=== PATIENT | male | born 1955 | race Caucasian/White ===

== ENCOUNTER 2017-02-14 08:29 | Inpatient (IN) | payer OTHER ==
[2017-01-30 11:31] VITALS: BMI 33.0
--- NOTE | 2017-01-30 12:04 | PAT Medication Instructions ---
Service Date Jan 30, 2017. Current Home Medication List Albuterol Hfa (Ventolin Hfa), 2 PUFFS INH Q4H PRN for RN Alprazolam (Xanax), 1 MG PO TID PRN for RN Amlodipine (Norvasc), 10 MG PO QAM Aspirin (Aspirin Ec), 81 MG PO QAM Baclofen (Lioresal), 20 MG PO TID PRN for PRN Bupropion (Wellbutrin Sr), 150 MG PO BID Citalopram Hydrobromide (Celexa), 20 MG PO QAM Insulin Glargine (Lantus), 20 UNITS SC HS Insulin Human Regular (Humulin R), 20 UNITS INJ TIDM Irbesartan (Avapro), 150 MG PO QAM Metformin Hcl (Glucophage), 1,000 MG PO BID Omeprazole (Prilosec), 20 MG PO QAM Zolpidem Tartrate (Zolpidem Tartrate), 1 TAB PO HS PRN for RN [Allergy Otc], 1 TAB PO HS Medication Instructions For Your Scheduled Surgery - Hold the following medications 48 hours prior to surgery: Metformin Hcl (Glucophage), 1,000 MG PO BID - Hold the following medications the morning of surgery: Irbesartan (Avapro), 150 MG PO QAM Insulin Human Regular (Humulin R), 20 UNITS INJ TIDM Baclofen (Lioresal), 20 MG PO TID PRN for PRN - Take the following medications the morning of surgery with a sip of water: Omeprazole (Prilosec), 20 MG PO QAM Citalopram Hydrobromide (Celexa), 20 MG PO QAM Bupropion (Wellbutrin Sr), 150 MG PO BID Amlodipine (Norvasc), 10 MG PO QAM Alprazolam (Xanax), 1 MG PO TID PRN for RN (if needed) Albuterol Hfa (Ventolin Hfa), 2 PUFFS INH Q4H PRN for RN (if needed; bring with you to hospital morning of surgery) Aspirin (Aspirin Ec), 81 MG PO QAM - Take the following medications as scheduled the night before surgery: [Allergy Otc], 1 TAB PO HS Zolpidem Tartrate (Zolpidem Tartrate), 1 TAB PO HS PRN for RN (if needed) Insulin Glargine (Lantus), 20 UNITS SC HS Insulin Human Regular (Humulin R), 20 UNITS INJ TIDM (per sliding scale) Bupropion (Wellbutrin Sr), 150 MG PO BID Baclofen (Lioresal), 20 MG PO TID PRN for PRN (if needed) Alprazolam (Xanax), 1 MG PO TID PRN for RN (if needed) Albuterol Hfa (Ventolin Hfa), 2 PUFFS INH Q4H PRN for RN (if needed) If you have any questions please call us at [phone] or [phone] or [phone]
[2017-01-30 12:38] LABS: BASO % 0.6 %; BASO ABS # 0.06 K/uL (0-0.2); COMPLETE YES; EOS % 3.8 %; HEMATOCRIT 36.4 % (42-52); IG% 0.6 %; LYMPH % 21.3 %; LYMPH ABS # 1.99 K/uL (1.2-3.4); MEAN CELL VOLUME 86.1 fL (80-100); MEAN CORPUSCULAR HEMOGLOBIN 28.1 pg (25-34); MEAN CORPUSCULAR HGB CONC 32.7 g/dl (32-36); MEAN PLATELET VOLUME 9.3 fL (7.4-10.4); MONO % 6.1 %; NEUT % 67.6 %; PLATELET COUNT 327 K/uL (130-400); RED BLOOD COUNT 4.23 M/uL (4.7-6.1); WHITE BLOOD COUNT 9.33 K/uL (4.8-10.8)
[2017-01-30 12:39] LABS: URINE APPEARANCE CLEAR (CLEAR); URINE BILIRUBIN NEG (NEG); URINE COLOR YELLOW; URINE NITRITE NEG (NEG); URINE SPECIFIC GRAVITY 1.026 (1.000-1.030); UROBILINOGEN NEG (NEG); ZZUR CULT IF INDIC CLEAN CATCH NO
--- NOTE | 2017-01-30 12:42 | DIAGNOSTIC IMAGING REPORT ---
CHEST PREADMISSION(PA/LAT) CLINICAL HISTORY: Preoperative chest COMPARISON STUDY: No previous studies for comparison. FINDINGS: The cardiac and mediastinal contours are normal. There is no evidence of focal pulmonary consolidation. There is no evidence of failure. No pleural effusions are visualized.[ IMPRESSION: No active disease in the chest. Electronically signed by: Lito Cain M.D. 01/30/2017 12:40 PM Dictated Date/Time: 01/30/2017 12:39 PM
[2017-01-30 12:43] LABS: MANUAL MICROSCOPIC REQUIRED? NO; REVIEW REQ? NO
[2017-01-30 12:48] LABS: BUN/CREATININE RATIO 8.1 (10-20); CALCIUM 9.7 mg/dl (8.5-10.1); CREATININE 1.5 mg/dl (0.60-1.40)
[2017-02-14] VITALS (7 sets, daily range): BP systolic 122–169; BP diastolic 79–95; PULSE 72–95; TEMP 36.4–37.4; O2SAT 92–99
[~2017-02-14] VITALS: Ht 180.3 cm; Wt 109.5 kg
[~2017-02-14 08:29] MED LIST: ALLERGY OTC PO; ALPR1TAB3 PO; AMLO-114 PO; ASPI81TA28 PO; ATROPINE SULFATE 0.1 MG/ML 5ML SYR IV PRN; BACL10TA PO; BUPR-79 PO; CEFAZOLIN 2000 MG/60 ML D5W IV SCH; CITA20TA9 PO; EpHEDrine SULFATE INJ 50 MG/ML AMP IV PRN; FENTANYL CITRATE INJ 50 MCG/1 ML 2 ML VIAL IV PRN; HYDROmorphone INJ 1 MG/ML SYR IV PRN; INSDGI SC; INSPMPRGR INJ; IRBE-37 PO; LACTATED RINGER'S 1000ML 1,000 ML IV SCH; METF-384 PO; ONDANSETRON INJ 2 MG/ML 2 ML VIAL IV PRN; PRLSR20 PO; VNTHFA/IN INH; ZOLP10TA6 PO
[2017-02-14] MEDS ORDERED: MIDAZOLAM HCL 1 MG/ML 2ML VIAL ONE (10:21)
[2017-02-14] MEDS ORDERED: FENTANYL CITRATE INJ 50 MCG/1 ML 2 ML VIAL ONE ×4 (10:21→13:38)
--- NOTE | 2017-02-14 10:44 | History & Physical Bridge Note ---
H&P Re-Evaluation Bridge Note: I have examined the patient, reviewed the History & Physical and in the interval since the performance of the History & Physical I have noted the following changes of clinical significance: No changes noted
--- NOTE | 2017-02-14 10:45 | History and Physical ---
History & Physical Date Feb 14, 2017. Chief Complaint Back and leg pain History of Present Illness The patient is a 61 year old male with complaints of persistent back and leg pain Additional History Hepatic Disease: No Endocrine Disorder: No Kidney Disease: No Hypertension: No Heart Disease: No Bleeding Tendencies: No Infectious Diseases: No Allergies Coded Allergies: Celecoxib (Verified Allergy, Unknown, DIZZINESS, 01/30/17) Simvastatin (Verified Allergy, Unknown, PRURITIS, 01/30/17) Home Medications Scheduled Aspirin (Aspirin Ec), 81 MG PO QAM Bupropion (Wellbutrin Sr), 150 MG PO BID Citalopram Hydrobromide (Celexa), 20 MG PO QAM Insulin Glargine (Lantus), 20 UNITS SC HS Insulin Human Regular (Humulin R), 20 UNITS INJ TIDM Irbesartan (Avapro), 150 MG PO QAM Metformin Hcl (Glucophage), 1,000 MG PO BID Omeprazole (Prilosec), 20 MG PO QAM [Allergy Otc], 1 TAB PO HS Scheduled PRN Albuterol Hfa (Ventolin Hfa), 2 PUFFS INH Q4H PRN for RN Alprazolam (Xanax), 1 MG PO TID PRN for RN Baclofen (Lioresal), 20 MG PO TID PRN for PRN Zolpidem Tartrate (Zolpidem Tartrate), 1 TAB PO HS PRN for RN Physical Examination Skin: warm/dry, no rash Eyes: normal inspection, EOMI, sclerae normal ENT: normal ENT inspection, pharynx normal Head: normocephalic, atraumatic Neck: supple, no adenopathy, trachea midline Respiratory/Chest: lungs clear, normal breath sounds, no respiratory distress Cardiovascular: regular rate, rhythm, no edema, no murmur Abdomen / GI: normal bowel sounds, non tender Back: normal inspection Extremities: normal inspection, normal range of motion Neurologic/Psych: no motor/sensory deficits, alert, normal reflexes, oriented x 3 Diagnosis Lumbar spinal stenosis Plan of Treatment Lumbar decompression and fusion L5-S1 possible L4 5
[2017-02-14] MEDS ORDERED: BUPIVACAINE/EPINEPHRINE 0.5% MPF 1:200,000 10 ML VIAL ONE (10:58)
[2017-02-14] MEDS ORDERED: BACITRACIN 50000 UNIT VIAL ONE (10:58)
[2017-02-14] MEDS ORDERED: HYDROmorphone INJ 2 MG/ML SYR/VIAL ONE ×2 (11:36→13:06)
[2017-02-14] MEDS ORDERED: DEXAMETHASONE SOD INJ 4 MG/ML VIAL ONE (12:02)
[2017-02-14] MEDS ORDERED: ROCURONIUM BROMIDE 10 MG/ML 5 ML VIAL ONE (12:02)
[2017-02-14] MEDS ORDERED: PROPOFOL IV EMULSION 10 MG/ML 20 ML VIAL IV ONE (12:02)
[2017-02-14] MEDS ORDERED: EpHEDrine SULFATE 50MG/5ML SYR ONE ×2 (12:02→13:08)
[2017-02-14] MEDS ORDERED: LIDOCAINE HCL 2% 2 ML VIAL (20MG/ML) ONE (12:02)
[2017-02-14] MEDS ORDERED: PHENYLEPHRINE 100MCG/ML 5ML SYR ONE ×2 (12:02→13:08)
[2017-02-14] MEDS ORDERED: FLOSEAL HEMOSTATIC MATRIX 10ML TOP ONE (12:53)
[2017-02-14] MEDS ORDERED: NEOSTIGMINE METHYLSULFATE 1 MG/ML 10ML VIAL ONE (13:08)
[2017-02-14] MEDS ORDERED: GLYCOPYRROLATE INJ 0.2 MG/ML VIAL ONE (13:08)
[2017-02-14] MEDS ORDERED: ONDANSETRON INJ 2 MG/ML 2 ML VIAL ONE (13:08)
--- NOTE | 2017-02-14 13:11 | DIAGNOSTIC IMAGING REPORT ---
INTRAOPERATIVE RADIOGRAPHS CLINICAL HISTORY: L4 - S1 spinal fusion. Fluoroscopy time: 23 seconds. FINDINGS: 2 spot fluoroscopic views of the lumbar spine are presented. There is been discectomy at L5-S1 with laminectomy and posterior fusion from L4 -S1. Interpedicular screws are present at all levels. The orthopedic hardware appears intact. IMPRESSION: Intraoperative images from L4-S1 spinal fusion as above. Electronically signed by: Dick Zurita M.D. 02/14/2017 1:10 PM Dictated Date/Time: 02/14/2017 1:04 PM
[2017-02-14] MEDS ORDERED: SODIUM CHLORIDE 0.9% 1000ML 1,000 ML IV SCH (13:14)
[2017-02-14] MEDS ORDERED: ONDANSETRON INJ 2 MG/ML 2 ML VIAL IV PRN (13:15)
[2017-02-14] MEDS ORDERED: MAGNESIUM HYDROXIDE SUSP 30 ML UDC PO PRN (13:15)
[2017-02-14] MEDS ORDERED: ZOLPIDEM TARTRATE 10 MG TAB PO PRN (13:15)
[2017-02-14] MEDS ORDERED: LORAZEPAM 0.5 MG TAB PO PRN (13:15)
[2017-02-14] MEDS ORDERED: BISACODYL 10 MG SUPP PR PRN (13:15)
[2017-02-14] MEDS ORDERED: PROMETHAZINE HCL INJ 12.5 MG in SODIUM CHLORIDE 0.9% 50ML 50 ML IV PRN (13:15)
[2017-02-14] MEDS ORDERED: FAMOTIDINE 20 MG TAB PO PRN (13:15)
[2017-02-14] MEDS ORDERED: NALOXONE HCL 0.4 MG/1 ML VIAL/CARP IV PRN ×2 (13:15)
[2017-02-14] MEDS ORDERED: METOCLOPRAMIDE HCL INJ 5 MG/ML 2 ML VIAL IV PRN (13:15)
[2017-02-14] MEDS ORDERED: LORAZEPAM INJ 0.5 MG in SYRINGE 0 ML IV PRN (13:15)
[2017-02-14] MEDS ORDERED: hydrOXYzine HCL 25 MG TAB PO PRN (13:15)
[2017-02-14] MEDS ORDERED: ALUMINUM/MAGNESIUM SUSP 30 ML UDC PO PRN (13:15)
[2017-02-14] MEDS ORDERED: ALPRAZOLAM 0.5 MG TAB PO PRN (13:15)
[2017-02-14] MEDS ORDERED: BACLOFEN 10 MG TAB PO PRN (13:15)
[2017-02-14] MEDS ORDERED: ALBUTEROL HFA 8 GM INHALER INH PRN (13:15)
[2017-02-14] MEDS ORDERED: SOD PHOSPHATE/SOD BIPHOSPHATE ENEMA 132 ML BTL PR PRN (13:15)
[2017-02-14] MEDS ORDERED: DO NOT ADMINISTER FLU VACCINE PRN ×3 (13:15)
[2017-02-14] MEDS ORDERED: ACETAMINOPHEN IV 100 ML IV PRN (13:15)
[2017-02-14] MEDS ORDERED: DO NOT ADMINISTER PNEUMOCOCCAL VACCINE PRN ×2 (13:15)
--- NOTE | 2017-02-14 13:23 | [facility] Operative Report ---
Operative Report Operative Date Feb 14, 2017. Pre-Operative Diagnosis Lumbar Spinal Stenosis Post-Operative Diagnosis Lumbar Spinal Stenosis Procedure(s) Performed #1 lumbar decompression L4 5 L5-S1. 2 posterior spinal fusion L4 5 L5-S1. #3 posterior segmental instrumentation L4 5 L5-S1. #4 interbody fusion L5-S1. #5 placement peek cage 10 x 26 mm at L5-S1. #6 placement locally harvested morcellized autograft posterior gutters. #7 placement infuse collagen sponge been by mask graft and posterior gutters DBM in the interbody space. Surgeon Blow Pit Operator Surgeon(s) None Estimated Blood Loss 225ML Findings Spinal stenosis Specimens None per surgeon Description of Procedure Patient was met with preoperatively case discussed all questions are dressed. After informed consent patient was taken back to the operative suite and after undergoing intubation placed in a prone position the Currie table top Som frame. All bony promises well-padded eyes inspected to ensure there is no external pressure placed upon them. This point, spine is prepped draped in the normal sterile fashion. Dissection with the assistance of Bovie cautery was performed onto an exposing the lamina and transverse processes of L4 5 and the sacral alar bilaterally. From a caudal to cephalad fashion laminectomy of L5 and L4 was performed addressing significant lateral recess and foraminal disease. Pedicle screws were then placed in L4 L5 S1 levels bilaterally with the assistance of fluoroscopy in the purposes chau placed. Through a transforaminal approach on the left complete discectomy of L5-S1 was performed and plate could subcortical bleeding bone and a 10 x 26 mm peek cage filled with DBM tapped in position. The rods were then locked and final position bilaterally. Transverse processes of L4-L5 and sacral alar burred to subcortical bleeding bone. Infuse collagen sponge mask graft locally harvested morcellized autograft was placed and posterior gutters. 15 round ARNOL drain inserted. Incision then closed with 1 Vicryl in the fascia 2-0 Vicryl subcutaneous C 4 Monocryl for final skin closure. Steri-Strips sterile dressing placed. Patient we can take PACU stable condition. I attest to the content of the Intraoperative Record and any orders documented therein. Any exceptions are noted below.
[2017-02-14] MEDS ORDERED: HYDROmorphone HCL 0.5MG/ML 50 ML CASSETTE ONE (13:29)
[2017-02-14] MEDS ORDERED: PHARMACY GLYCEMIC MGMT CONSULT PRN (13:33)
--- NOTE | 2017-02-14 14:21 | Anesthesiology Progress Note ---
Anesthesia Post Op Note Date & Time Feb 14, 2017 at 14:13 Vital Signs Pain Intensity: 6 Vital Signs Past 12 Hours Date Time Temp Pulse Resp B/P (MAP) Pulse Ox O2 Delivery O2 Flow Rate FiO2 02/14/17 14:05 36.4 91 14 151/90 100 Nasal Cannula 4 02/14/17 13:55 96 13 153/89 96 Nasal Cannula 4 02/14/17 13:45 93 16 144/90 100 Oxymask 10 02/14/17 13:35 98 11 141/89 100 Oxymask 10 02/14/17 13:25 36.4 94 16 163/82 98 Oxymask 10 02/14/17 09:18 36.9 72 18 167/94 97 Room Air Notes Mental Status: alert / awake / arousable, participated in evaluation Pt Amnestic to Procedure: Yes Nausea / Vomiting: adequately controlled Pain: adequately controlled Airway Patency, RR, SpO2: stable & adequate BP & HR: stable & adequate Hydration State: stable & adequate Anesthetic Complications: no major complications apparent
[2017-02-14] MEDS: HYDROmorphone HCL 0.5MG/ML 50 ML CASSETTE IV PRN ×2 (14:30→23:02)
[2017-02-14] MEDS ORDERED: CLB/200 PO (15:28)
[2017-02-14] MEDS ORDERED: PANT40TA PO (15:28)
[2017-02-14] MEDS ORDERED: AMLO-114 PO (15:28)
[2017-02-14] MEDS ORDERED: PNEUMOCOCCAL POLYSACCHARIDES 25 MCG/0.5 ML VIAL/SYR IM. ONE (15:30)
[2017-02-14] MEDS ORDERED: GLUCOSE 40% GEL 15 GM TUBE PO PRN (15:30)
[2017-02-14] MEDS ORDERED: GLUCOSE 10 TABS/TUBE PO PRN (15:30)
[2017-02-14] MEDS ORDERED: GLUCAGON FOR INJ 1 MG VIAL SQ PRN (15:30)
[2017-02-14] MEDS ORDERED: ONDANSETRON INJ 2 MG/ML 2 ML VIAL IV ONE (15:30)
[2017-02-14] MEDS ORDERED: DEXTROSE 50% 50 ML SYR IV PRN (15:30)
[2017-02-14] MEDS ORDERED: PNEUMOCOCCAL ADMINISTRATION CHARGE ONE (15:30)
[2017-02-14] MEDS: LACTATED RINGER'S 1000ML 1,000 ML IV SCH ×2 (15:38→21:35)
--- NOTE | 2017-02-14 18:30 | Pharmacy Progress Note ---
Glycemic Control Intl Consult Date of Service Feb 14, 2017. Scope Glycemic Pharmacist consulted by Dr Sue on 02/14/17 for glycemic control and to write orders per [facility] inpatient glycemic control protocol Objective Weight (Kilograms): 109.500 Accuchecks BSG (last 24hrs): Test 02/14/17 13:46 Bedside Glucose 180 mg/dl (70-99) Recent Pertinent Medications Outpatient Anti-diabetic Regimen: * Lantus 25 units hs, regular insulin 20 units tidm w/sliding scale, metformin 1000 mg bid * A1c = pending 02/15/17 The patient is currently receiving: * Basal insulin: Lantus 20-25 units every hs * Correctional Insulin: Novolog Correction per scale ACHS Goal Range: Low 140 mg/dL - High 180 mg/dL Correction Factor: 20 mg/dL/unit * Prandial insulin: Per carb ratio of 1 unit per 7 grams CHO consumed Oral Agents: none Risk Factors for Insulin Resistance: * Steroids: Dexamethasone 12 mg in OR, then 6 mg q8h x 3 doses * Infection: cefazolin perioperatively * Pressors: no * IVF: LR @150 ml/hr * Recent Surgery: OR today-spinal surgery * Diet: npo advancing to type 2 diabetic * Mechanical Ventilation: no Assessment & Plan ASSESSMENT: * ADA & AACE recommend a goal blood sugar range 140-180 mg/dl for the majority of critically ill & non-critically ill patients. However, more stringent targets may be selected in individual cases. * 61 yo type 2 diabetic, Hgb A1c pending to assess usual glycemic control. I expect BSG's to rise due to postoperative steroids and stress of surgery. Will start high stress weight-based Novolog, decrease Lantus based on BSG, and reassess in am. PLAN FOR INPATIENT GLYCEMIC CONTROL: * Holding outpatient oral diabetes medications * Basal insulin with LANTUS hs: 10 units for BSG less than 120, 20 units for BSG 120-160, 25 units for BSG greater than 160 * Correctional Insulin with NOVOLOG per scale ACHS or Q6hrs while NPO * Goal Range: Low 120 mg/dL - High 160 mg/dL * Correction Factor: 15 mg/dL/unit * Nutritional / Prandial insulin per carb ratio of 1 unit per 5 grams CHO consumed * Please note that the plan above was derived based on current level of insulin resistance and hospital stress. These recommendations are appropriate for inpatient admission only. Plan of care upon discharge will need to be reassessed to avoid potential outpatient hypo/hyperglycemia. Thank you.
--- NOTE | 2017-02-14 18:31 | Medical Consult ---
Consultation Date of Consultation: Feb 14, 2017. Attending Physician: Messi Sue D.O. Reason for Consultation: postop medical management History of Present Illness Patient seen and examined after undergoing lumbosacral decompression/ fusion today by Dr. Sue. He reports back pain rated 10/10. Using MARKET SALES MANAGER. Feels tired and nauseous. No vomiting. Has only had sips of water after surgery. Denies dizziness, chest pain, SOB, abdominal pain, recent bowel or bladder change, numbness, weakness. No hx of VTE. Past Medical/Surgical History Medical Problems: (1) DDD (degenerative disc disease) Status: Chronic (2) DM type 2 (diabetes mellitus, type 2) Status: Chronic (3) HTN (hypertension) Status: Chronic (4) Insomnia Status: Chronic (5) Spinal stenosis Status: Chronic Surgical Problems: (1) H/O shoulder surgery Status: Chronic (2) H/O sinus surgery Status: Chronic Family History Cardiac disorder FATHER MOTHER Social History Smoking Status: Never Smoker Alcohol Use: none Drug Use: none Marital Status: in relationship Allergies Coded Allergies: Simvastatin (Verified Allergy, Mild, PRURITIS, 02/14/17) Celecoxib (Verified Adverse Reaction, Mild, DIZZINESS, 02/14/17) Home Medications Active Reported Protonix (Pantoprazole Sodium) 40 Mg Tab 40 Mg PO DAILY CeleBREX (Celecoxib) 200 Mg Cap 200 Mg PO DAILY Norvasc (Amlodipine Besylate) 10 Mg Tab 10 Mg PO DAILY Aspirin Ec (Aspirin) 81 Mg Tab 81 Mg PO QAM Zolpidem Tartrate 10 Mg Tab 1 Tab PO HS PRN 30 Days Ventolin Hfa (Albuterol) 200 Puffs/14878 Mcg Aers 2 Puffs INH Q4H PRN [Allergy Otc] 1 Tab PO HS Glucophage (Metformin Hcl) 1,000 Mg Tab 1,000 Mg PO BID Avapro (Irbesartan) 150 Mg Tab 150 Mg PO QAM Lantus (Insulin Glargine) 100 Unit/Ml Inj 25 Units SC HS Humulin R (Insulin Human Regular) 1 Ea Inj 20 Units INJ TIDM SLIDING SCALE Celexa (Citalopram Hydrobromide) 20 Mg Tab 20 Mg PO QAM Wellbutrin Sr (Bupropion HCl) 150 Mg Ertab 150 Mg PO BID Lioresal (Baclofen) 10 Mg Tab 20 Mg PO TID PRN Xanax (Alprazolam) 1 Mg Tab 1 Mg PO TID PRN Current Inpatient Medications Current Inpatient Medications Medications (Trade) Dose Ordered Sig/Michelle Route Start Time Stop Time Status Last Admin Dose Admin Lactated Ringer's 1,000 ml @ 15 mls/hr Q24H IV 02/14/17 06:00 02/15/17 05:59 02/14/17 09:25 15 MLS/HR Cefazolin Sodium 60 ml @ 100 mls/hr PREOP IV 02/14/17 06:00 02/14/17 18:00 02/14/17 11:13 100 MLS/HR Dexamethasone Sodium Phosphate 6 mg/Syringe 1.5 ml @ 1 mls/min Q8H IV 02/14/17 20:00 02/15/17 12:02 Promethazine HCl 12.5 mg/Sodium Chloride 50.5 ml @ 202 mls/hr Q6H PRN IV 02/14/17 13:15 03/16/17 13:14 Ondansetron HCl (Zofran Inj) 4 mg Q6H PRN IV 02/14/17 13:15 03/16/17 13:14 Metoclopramide HCl (Reglan Inj) 10 mg Q6H PRN IV 02/14/17 13:15 03/16/17 13:14 Lorazepam 0.5 mg/ Syringe 0.25 ml @ 1 mls/min Q8H PRN IV 02/14/17 13:15 03/16/17 13:14 Pneumococcal Polysaccharide Vaccine 1 ea PRN PRN N/A 02/14/17 13:15 03/16/17 13:14 Influenza Virus Vacc Triv Types A&B 1 ea PRN PRN N/A 02/14/17 13:15 03/16/17 13:14 Polyethylene (Miralax Powder Packet) 17 gm Q6 PO 02/16/17 06:00 03/18/17 05:59 Bisacodyl (Dulcolax Supp) 10 mg DAILY PRN OH 02/14/17 13:15 03/16/17 13:14 Magnesium Hydroxide (Milk Of Magnesia Susp) 30 ml DAILY PRN PO 02/14/17 13:15 03/16/17 13:14 Hydromorphone HCl (Dilaudid Inj) 0.5 mg Q3H PRN IV 02/15/17 06:00 03/01/17 05:59 Oxycodone HCl (Roxicodone Immediate Rel Tab) 5-10mg prn moderate to sev... Q4H PRN PO 02/15/17 06:00 03/01/17 05:59 Cefazolin Sodium 2000 mg/Dextrose 60 ml @ 100 mls/hr Q8H IV 02/14/17 20:00 02/15/17 04:35 Lactated Ringer's 1,000 ml @ 150 mls/hr Q6H40M IV 02/14/17 15:00 03/16/17 14:59 02/14/17 15:38 150 MLS/HR Acetaminophen (Tylenol Tab) 1,000 mg Q8H PRN PO 02/14/17 13:15 03/16/17 13:14 Acetaminophen 100 ml @ 400 mls/hr Q8H PRN IV 02/14/17 13:15 03/16/17 13:14 Naloxone HCl (Narcan Inj) 0.1 mg Q5M PRN IV 02/14/17 13:15 03/16/17 13:14 Senna/Docusate Sodium (Senokot S Tab) 2 tab HS PO 02/14/17 21:00 03/16/17 20:59 Sodium Biphosphate/ Sodium Phosphate (Fleet Enema) 132 ml ONE PRN OH 02/14/17 13:15 03/16/17 13:14 Hydroxyzine HCl (Vistaril Tab) 25 mg Q8H PRN PO 02/14/17 13:15 03/16/17 13:14 Al Hydroxide/Mg Hydroxide (Maalox Susp) 30 ml Q6H PRN PO 02/14/17 13:15 03/16/17 13:14 Famotidine (Pepcid Tab) 20 mg Q12 PRN PO 02/14/17 13:15 03/16/17 13:14 Diphenhydramine HCl (Benadryl Cap) 25 mg Q6H PRN PO 02/14/17 13:15 03/16/17 13:14 Miscellaneous Information (Discontinue MARKET SALES MANAGER) 1 ea TODAY@0600 N/A 02/15/17 06:00 02/15/17 06:01 Naloxone HCl (Narcan Inj) 0.1 mg Q5M PRN IV 02/14/17 13:15 02/15/17 06:00 Hydromorphone HCl (Dilaudid Toll Bridge Operator) 25 mg PRN PRN IV 02/14/17 13:15 02/15/17 06:00 02/14/17 14:30 25 MG Sodium Chloride 1,000 ml @ 15 mls/hr Q24H IV 02/14/17 13:14 02/15/17 06:00 Albuterol (Ventolin Hfa Inhaler) 2 puffs Q4H PRN INH 02/14/17 13:15 03/16/17 13:14 Alprazolam (Xanax Tab) 1 mg TID PRN PO 02/14/17 13:15 03/16/17 13:14 Aspirin (Ecotrin Tab) 81 mg QAM PO 02/15/17 09:00 03/17/17 08:59 Baclofen (Lioresal Tab) 20 mg TID PRN PO 02/14/17 13:15 03/16/17 13:14 Bupropion HCl (Wellbutrin-Sr Tab) 150 mg BID PO 02/14/17 21:00 03/16/17 20:59 Citalopram Hydrobromide (celeXA TAB) 20 mg QAM PO 02/15/17 09:00 03/17/17 08:59 Irbesartan (Avapro Tab) 150 mg QAM PO 02/15/17 09:00 03/17/17 08:59 Zolpidem Tartrate (Ambien Tab) 10 mg HS PRN PO 02/14/17 13:15 03/16/17 13:14 Pantoprazole Sodium (Protonix Tab) 40 mg QAM PO 02/15/17 09:00 03/17/17 08:59 Miscellaneous Information (Consult Glycemic Management Pharmacy) 1 ea UD PRN N/A 02/14/17 13:33 03/16/17 13:32 Hydromorphone HCl (Dilaudid Inj) 1 mg Q3H PRN IV 02/15/17 06:00 03/01/17 05:59 Insulin Aspart (novoLOG ASPART) SLIDING SCALE If C... ACHS SC 02/14/17 17:15 03/16/17 17:14 Glucose (Glucose 40% Gel) 15-30 GRAMS 15 GRAMS... UD PRN PO 02/14/17 15:30 03/16/17 15:29 Glucose (Glucose Chew Tab) 4-8 Tablets 4 Tabl... UD PRN PO 02/14/17 15:30 03/16/17 15:29 Dextrose (Dextrose 50% 50ML Syringe) 25-50ML OF 50% DW IV FOR... UD PRN IV 02/14/17 15:30 03/16/17 15:29 Glucagon (Glucagon Inj) 1 mg UD PRN SQ 02/14/17 15:30 03/16/17 15:29 Amlodipine Besylate (Norvasc Tab) 10 mg DAILY PO 02/15/17 09:00 03/17/17 08:59 Insulin Glargine (Lantus Solostar Pen) SEE PROTOCOL HS SC 02/14/17 21:00 03/16/17 20:59 Review of Systems Ten systems reviewed and negative except as noted in HPI. Physical Exam Date Time Temp Pulse Resp B/P (MAP) Pulse Ox O2 Delivery O2 Flow Rate FiO2 02/14/17 16:31 36.4 82 16 169/95 (119) 94 Nasal Cannula 4.0 02/14/17 15:37 36.5 90 18 126/80 (95) 92 Nasal Cannula 4.0 02/14/17 15:00 36.6 86 16 148/87 (107) 97 Nasal Cannula 4.0 02/14/17 14:30 99 Nasal Cannula 4.0 02/14/17 14:30 37.4 95 16 153/91 (111) 99 Nasal Cannula 4.0 02/14/17 14:30 99 Nasal Cannula 4.0 02/14/17 14:15 89 14 155/88 99 Nasal Cannula 4 02/14/17 14:05 36.4 91 14 151/90 100 Nasal Cannula 4 02/14/17 13:55 96 13 153/89 96 Nasal Cannula 4 02/14/17 13:45 93 16 144/90 100 Oxymask 10 02/14/17 13:35 98 11 141/89 100 Oxymask 10 02/14/17 13:25 36.4 94 16 163/82 98 Oxymask 10 02/14/17 09:18 36.9 72 18 167/94 97 Room Air General Appearance: WD/WN, no apparent distress Head: normocephalic, atraumatic Eyes: normal inspection, PERRL, EOMI, sclerae normal ENT: hearing grossly normal, pharynx normal Neck: supple, trachea midline Respiratory/Chest: lungs clear, normal breath sounds, no respiratory distress Cardiovascular: regular rate, rhythm, no murmur Abdomen/GI: normal bowel sounds, non tender, soft Back: + pertinent finding (s/p lumbosacral spinal surgery. drain in place with sanguinous drainage. ) Extremities/Musculoskelatal: no calf tenderness, no pedal edema, + pertinent finding (SCD's in place bilateral LE) Neurologic/Psych: alert, normal mood/affect, oriented x 3, + pertinent finding (sensation to light touch intact bilateral feet, ankle flexion/ extension grossly intact bilaterally ) Skin: normal color, warm/dry Laboratory Results Last 24 Hours Test 02/14/17 09:05 02/14/17 09:13 02/14/17 13:46 Bedside Glucose 166 mg/dl 180 mg/dl Hepatitis C Antibody Screen NEG Assessment & Plan S/P LUMBOSACRAL DECOMPRESSION/ FUSION POD #[address] Sue Pain control, wound care, activity per ortho Monitor daily H/H for sign of acute blood loss anemia Continue incentive spirometry PT/OT POSTOP NAUSEA No vomiting Will give dose of Zofran and monitor DM TYPE 2 Hold metformin Pharmacy was consulted by ortho for glycemic management; appreciate input Placed on Lantus and Novolog sliding scale HYPERTENSION BP is intermittently elevated likely secondary to pain Continue amlodipine and irbesartan DVT PROPHYLAXIS Per ortho DISPOSITION Per ortho Patient seen in collaboration with Dr. Tijerina. Please see his addendum. Attending Note: Patient is a 61 Yr male with PMH of DM II, HTN and other problems was consulted for medical management after undergoing lumbosacral decompression/ fusion today by Dr. Sue. He is seen and examined post OP. Denies SOB, chest pain, dizziness, abd pain. Reports chronic back pain. Physical Exam: Vitals signs as noted above General Appearance:Moderately built and nourished, no apparent distress Head: normocephalic, Atraumatic Eyes: normal inspection, EOMI, PERRL Neck: supple, Trachea midline Respiratory/Chest: Normal breath sounds, CTA Cardiovascular: S1, S2, No murmur Abdomen/GI:Soft, Non tender, Bowel sounds present Back: Surgical site in bandage Extremities/Musculoskelatal:normal inspection, no edema Neurologic/Psych:grossly no focal neurological deficits Skin:normal color,warm Assessment and Plan: DM II: Continue ISS, Lantus Hold metformin Check A1C HTN: Labile likely secondary to pain Resume home meds Monitor H/O Asthma: No signs of exacerbation Albuterol PRN I personally reviewed the record. Patient is interviewed and examined at bedside. Patient's care is coordinated with Fior Tim PA-C. Please refer to the documentation above for details of patient's presentation and for discussion of other issues.
[2017-02-14] MEDS: INSULIN ASPART 100 UNITS/ML 3 ML PEN SC SCH ×2 (18:57→21:34)
[2017-02-14] MEDS: DEXAMETHASONE INJ 6 MG in SYRINGE 0 ML IV SCH (20:02)
[2017-02-14] MEDS: CEFAZOLIN IV 2,000 MG in DEXTROSE 5% 50ML 50 ML IV SCH (20:02)
[2017-02-14] MEDS: BuPROPion SR 150 MG TABCR PO SCH (20:43)
[2017-02-14] MEDS: DOCUSATE SODIUM/SENNA 50/8.6MG TAB PO SCH (20:43)
[2017-02-14] MEDS ORDERED: INSULIN GLARGINE SOLOSTAR 100 UNITS/ML 3 ML PEN SC SCH (21:00)
[2017-02-14] MEDS: ACETAMINOPHEN 500 MG TAB PO PRN (23:41)
[2017-02-15] MEDS: CEFAZOLIN IV 2,000 MG in DEXTROSE 5% 50ML 50 ML IV SCH (03:18)
[2017-02-15] MEDS: LACTATED RINGER'S 1000ML 1,000 ML IV SCH (03:18)
[2017-02-15] MEDS: DEXAMETHASONE INJ 6 MG in SYRINGE 0 ML IV SCH ×2 (03:18→12:08)
[2017-02-15 04:05] VITALS: BP 112/71; PULSE 77; TEMP 36.6; O2SAT 95
[2017-02-15] MEDS ORDERED: DC PCA SCH (06:00)
[2017-02-15] MEDS ORDERED: HYDROmorphone INJ 1 MG/ML SYR IV PRN (06:00)
[2017-02-15] MEDS ORDERED: HYDROmorphone INJ 0.5 MG/0.5 ML SYR IV PRN (06:00)
[2017-02-15] MEDS ORDERED: OXYCODONE HCL IR 5 MG TAB (IMMEDIATE RELEASE) PO PRN (06:00)
[2017-02-15] MEDS ORDERED: NURSING VERBAL MED ORDER ONE (06:15)
[2017-02-15 07:12] VITALS: BP 137/80; PULSE 90; TEMP 36.5; O2SAT 96
[2017-02-15] MEDS: ACETAMINOPHEN 500 MG TAB PO PRN (07:54)
[2017-02-15 08:15] LABS: BASO % 0.1 %; BASO ABS # 0.01 K/uL (0-0.2); COMPLETE YES; HEMATOCRIT 34.1 % (42-52); IG% 0.5 %; LYMPH % 4.8 %; LYMPH ABS # 0.78 K/uL (1.2-3.4); MEAN CELL VOLUME 84.6 fL (80-100); MEAN CORPUSCULAR HEMOGLOBIN 27.5 pg (25-34); MEAN CORPUSCULAR HGB CONC 32.6 g/dl (32-36); MEAN PLATELET VOLUME 9.3 fL (7.4-10.4); MONO % 4.2 %; NEUT % 90.4 %; PLATELET COUNT 331 K/uL (130-400); RED BLOOD COUNT 4.03 M/uL (4.7-6.1); WHITE BLOOD COUNT 16.25 K/uL (4.8-10.8)
[2017-02-15] MEDS ORDERED: INSULIN GLARGINE SOLOSTAR 100 UNITS/ML 3 ML PEN SC ONE (08:15)
[2017-02-15] MEDS: INSULIN ASPART 100 UNITS/ML 3 ML PEN SC SCH ×3 (08:30→18:31)
[2017-02-15 08:41] LABS: BUN/CREATININE RATIO 10.3 (10-20); CALCIUM 8.7 mg/dl (8.5-10.1); CREATININE 1.6 mg/dl (0.60-1.40); POTASSIUM 4.2 mmol/L (3.5-5.1)
--- NOTE | 2017-02-15 09:22 | Anesthesiology Progress Note ---
Anesthesia Post Op Note Date & Time Feb 15, 2017 at 09:22 Vital Signs Pain Intensity: 10.0 Vital Signs Past 12 Hours Date Time Temp Pulse Resp B/P (MAP) Pulse Ox O2 Delivery O2 Flow Rate FiO2 02/15/17 07:12 36.5 90 16 137/80 (99) 96 Room Air 02/15/17 04:05 36.6 77 16 112/71 (85) 95 Room Air 02/14/17 23:51 Room Air 02/14/17 23:46 36.6 84 16 122/79 (93) 92 Room Air Notes Mental Status: alert / awake / arousable, participated in evaluation Pt Amnestic to Procedure: Yes Nausea / Vomiting: adequately controlled Pain: adequately controlled Airway Patency, RR, SpO2: stable & adequate BP & HR: stable & adequate Hydration State: stable & adequate Anesthetic Complications: no major complications apparent
[2017-02-15 09:30] LABS: ESTIMATED AVERAGE GLUCOSE 189 mg/dl; HA1C FLAG Normal (Normal)
[2017-02-15] MEDS: ASPIRIN 81 MG ECTAB PO SCH (09:41)
[2017-02-15] MEDS: IRBESARTAN 150 MG TAB PO SCH (09:41)
[2017-02-15] MEDS: AMLODIPINE BESYLATE 5 MG TAB PO SCH (09:41)
[2017-02-15] MEDS: BuPROPion SR 150 MG TABCR PO SCH ×2 (09:42→21:17)
[2017-02-15] MEDS: CITALOPRAM 20 MG TAB PO SCH (09:42)
[2017-02-15] MEDS: PANTOprazole SOD 40 MG TAB PO SCH (09:43)
--- NOTE | 2017-02-15 10:50 | Pharmacy Progress Note ---
Glycemic Control Progress Note Date of Service Feb 15, 2017. Scope Glycemic Pharmacist consulted for glycemic control to write orders per [facility] inpatient glycemic control protocol. Objective Accuchecks BSG (last 24hrs): Test 02/14/17 13:46 02/14/17 17:29 02/14/17 20:47 02/15/17 07:56 Bedside Glucose 180 mg/dl (70-99) 236 mg/dl (70-99) 277 mg/dl (70-99) Random Glucose 286 mg/dl (70-99) Test 02/15/17 07:59 Bedside Glucose 297 mg/dl (70-99) HbA1c: Test 02/15/17 07:56 Hemoglobin A1c 8.2 % (4.5-5.6) H Recent Pertinent Medications The patient is currently receiving: * Basal insulin: Lantus 25 units every HS * Correctional Insulin: Novolog Correction per scale ACHS Goal Range: Low 120 mg/dL - High 160 mg/dL Correction Factor: 15 mg/dL/unit * Prandial insulin: Per carb ratio of 1 unit per 5 grams CHO consumed * Oral Agents: None at this time Outpatient Anti-Diabetic Meds Lantus 25 units qHS Regular per sliding scale with meals - patient reports that he takes minimal amts and does not need any some days Metformin 1 gm BID Assessment & Plan ASSESSMENT: * See progress note from 02/14 for more background info, in short: * Pt receiving SQ basal bolus insulin regimen for hyperglycemia secondary to baseline DM (outpatient regimen on hold), recent surgery, steroids (postop Decadron) * Patient received 47 units of insulin yesterday * BSGs ranging 180 - 297 mg/dl over the past 24hrs * Changes needed to insulin regimen (for this AM): * AM Fasting BSG = 297 mg/dl. This is well above goal range for patient based on inpatient targets and co-morbidities. Therefore Basal insulin needs increased - will base this off of stress level of 3 and patient's weight * Post-prandial BSGs are elevated, therefore need to tighten CF/CR - currently tighter than stress level of 3 but making up for lower doses yesterday * Changes needed to insulin regimen (starting this evening): * Loosen CF/CR to stress level of 3 * Resume outpatient dose of Lantus PLAN FOR INPATIENT GLYCEMIC CONTROL: * Lantus 40 units x 1 this AM, 25 units qHS starting tonight * Correction factor: * 10 mg/dL/unit, loosen to 15 mg/dL/unit for bedtime, 20 mg/dL/unit starting tomorrow AM * Carb ratio: * 1 unit per 3 gm CHO consumed, 1 unit per 5 for bedtime, 1 unit per 7 starting tomorrow AM * Resume metformin 1 gm BID tomorrow AM RECOMMENDATIONS FOR DISCHARGE: * A1c warrants some improvement in BSGs but patient reports his blood sugars have improved significantly since starting the Lantus * Recommend to continue outpatient regimen and continue to work w/ PCP to improve BSGs Thank you.
[2017-02-15] MEDS ORDERED: KETOROLAC TROMETHAMINE 30 MG/ML VIAL IV PRN (11:00)
[2017-02-15] MEDS ORDERED: RXC5 PO (11:50)
--- NOTE | 2017-02-15 11:51 | Discharge Instructions ---
Discharge Instructions Date of Service Feb 15, 2017. Admission Reason for Admission: Lumbar Spinal Stenosis Discharge Discharge Diagnosis / Problem: lumbar spinal stenosis Discharge Goals Goal(s): Improve function Activity Recommendations Activity Limitations: per Instructions/Follow-up section . Instructions / Follow-Up Instructions / Follow-Up u ACTIVITY RECOMMENDATIONS: SELF CARE INSTRUCTIONS AFTER THORACIC/LUMBAR FUSIONS 1. You may walk to your tolerance. It is good exercise for your legs and back. Expect some back and intermittent leg aches and pains. 2. You may perform "counter-top" level activities (make a sandwich, vicente with a project, etc.). 3. No bending or lifting of more than 10 pounds or back twisting of any nature (roll like a log when turning in bed). 4. You may ride in a car for 20-30 minutes at a time. No driving until after your first visit with your doctor. 5. Frequent changes of position and restricting sitting to 30 minutes at a time will help limit the amount of back spasms and stiffness you may experience. 6. You may discontinue the use of ambulatory aids (cane, crutches, etc.) once your strength and confidence allow. 7. You may instructor technical training the shower and let water strike your incision when you arrive home at least once daily. Do not take a tub bath, sit in a hot tub or go into a swimming pool until after your first recheck in the office. SPECIAL CARE INSTRUCTIONS: VERY IMPORTANT TO READ AND REVIEW A. Your surgical incision has been closed with a cosmetic suture under the skin that will dissolve in about 6 weeks. In 14 days, you can use a pair of clean scissors and cut the suture that is left outside of the skin at the ends of your incision. 1. The small skin tapes can be removed 7 days after surgery if they have not fallen off by that point. 2. You may keep the wound open to air as much as possible to promote healing after post-op day number 5 unless told otherwise by your doctor. 3. If you think the wound looks like it is becoming infected (redness or worsening drainage) and/or you are experiencing fever, chill or worsening back pain and muscle spasms, contact the office so that we may evaluate you as soon as possible. B. Complications are uncommon, but please contact us if you have any signs or symptoms of: 1. wound infection (fever higher than 102.5 degrees F, redness, separation of wound, drainage, or increasing pain from the incision) 2. blood clots in legs (pain, swelling, redness and warmth in legs) 3. urinary tract infection (fever higher than 102.5 degrees F, burning upon urination or increased frequency of urination) 4. nerve problems (inability to walk on your toes or heels, numbness, loss of bowel or bladder control) 5. any other symptoms that concern you C. Please call the office at if you have any concerns or questions about your operation or recovery. D. No smoking! Smoking drastically decreases the chance of a solid fusion. E. Do not take any anti-inflammatory medications (Indocin, Advil, Motrin, Aspirin, Naprosyn, etc.) as these may inhibit the chance of a solid fusion. Tylenol is okay to take for pain. MANAGING PAIN AFTER SPINAL SURGERY 1. Narcotic medication is intended for short-term use and will be provided for surgical pain. Surgical pain usually lasts for a period of 4-6 weeks. Narcotic medication includes Percocet, Vicodin, Darvocet, Tylenol #3 or Lortab. 2. Longer-term pain is more appropriately treated with non-narcotic medication such as Tylenol ES. 3. Muscle spasm is not appropriately treated with narcotics. Muscle relaxers such as Soma, Flexeril or Skelaxin can be used along with Tylenol ES. 4. Remember that we all live with some "aches and pains". This is not unusual or uncommon after an injury or as we get older. a. Back pain is expected and may include muscle spasms for 4 to 6 weeks after surgery. The pain should gradually improve. If the pain worsens for no apparent reason, please contact the office. b. Intermittent leg pain may also be experienced and should not be concerned about unless it worsens for no apparent reason. If so, please contact the office. 5. We will provide appropriate medication within the normal guidelines of their prescribed use. We will also be very cautious and aware of potential abuse and extended duration of patients' medication needs. a. Pain medications are for your comfort and to assist with sleep and rest so that the tissue can heal. They are not provided in order to return to normal activity and should not be used through the day. To do so or worsening pain at night can result from ongoing tissue damage and development of tolerance to the prescribed medicine. 6. Please allow 2-3 days to process refills. Prescriptions will not be mailed but must be picked up at the office. FOLLOW UP VISIT: Keep your scheduled follow-up appointment. Any questions, please call the office at . Current Hospital Diet Patient's current hospital diet: Diabetes Type 2 Diet Discharge Diet Recommended Diet: Regular Diet Procedures Procedures Performed: #1 lumbar decompression L4 5 L5-S1. 2 posterior spinal fusion L4 5 L5-S1. #3 posterior segmental instrumentation L4 5 L5-S1. #4 interbody fusion L5-S1. #5 placement peek cage 10 x 26 mm at L5-S1. #6 placement locally harvested morcellized autograft posterior gutters. #7 placement infuse collagen sponge been by mask graft and posterior gutters DBM in the interbody space. Pending Studies Studies pending at discharge: no Laboratory Results Hemoglobin A1c Test 02/15/17 07:56 Range/Units Estimated Average Glucose 189 mg/dl Hemoglobin A1c 8.2 H 4.5-5.6 % Medical Emergencies . Who to Call and When: Medical Emergencies: If at any time you feel your situation is an emergency, please call 911 immediately. . Non-Emergent Contact Non-Emergency issues call your: Primary Care Provider . "Provider Documentation" section prepared by Messi Sue. . VTE Core Measure Inpt VTE Proph given/why not?: Elieser Britton, [facility]
[2017-02-15 12:01] VITALS: BP 133/78; PULSE 91; TEMP 36.3; O2SAT 96
[2017-02-15 13:54] VITALS: Ht 180.3 cm; Wt 109.5 kg
[2017-02-15 15:22] VITALS: BP 115/67; PULSE 92; TEMP 36.8; O2SAT 96
[2017-02-15 16:00] VITALS: O2SAT 96
--- NOTE | 2017-02-15 16:15 | Progress Note ---
Progress Note Date of Service Feb 15, 2017. Progress Note Back pain is controlled left leg symptoms markedly improved. Vital signs are stable. On exam he is comfortable as good strength testing. Assessment status post lumbar depression fusion replant this time continue physical therapy advance his bowel regimen anticipate possible home tomorrow.
--- NOTE | 2017-02-15 18:00 | Progress Note ---
Internal Med Progress Note Date of Service: Feb 15, 2017. Provider Documentation: SUBJECTIVE: Seen and examined at bedside. States back pain is much better LE numbness much improved Denies chest pain/SOB OBJECTIVE: Vital Signs-as noted below General Appearance:Moderately built and nourished, no apparent distress Head: normocephalic, Atraumatic Eyes: normal inspection, EOMI, PERRL Neck: supple, Trachea midline Respiratory/Chest: Normal breath sounds, CTA Cardiovascular: S1, S2, No murmur Abdomen/GI:Soft, Non tender, Bowel sounds present Back: Surgical site in bandage Extremities/Musculoskelatal:normal inspection, no edema Neurologic/Psych:grossly no focal neurological deficits Skin:normal color,warm Lab data as noted below. ASSESSMENT & PLAN: S/P LUMBOSACRAL DECOMPRESSION/ FUSION POD # [address] Sue Pain control, wound care, DVT Px and activity per ortho Hb stable Post OP Continue incentive spirometry PT/OT DM II: Continue ISS, Lantus Hold metformin while hospitalized A1C:8.2 HTN: Stable Continue home meds Monitor Leukocytosis; Likely secondary to steroids Afebrile Monitor H/O Asthma: No signs of exacerbation Albuterol PRN CKD II: Cr stable Admits to Poor oral intake DVT Px Per ortho DISPOSITION Per ortho Vital Signs: Date Time Temp Pulse Resp B/P (MAP) Pulse Ox O2 Delivery O2 Flow Rate FiO2 02/15/17 16:00 96 Room Air 02/15/17 15:22 36.8 92 19 115/67 (83) 96 Room Air 02/15/17 12:01 36.3 91 18 133/78 (96) 96 Room Air 02/15/17 08:00 Room Air 02/15/17 07:12 36.5 90 16 137/80 (99) 96 Room Air 02/15/17 04:05 36.6 77 16 112/71 (85) 95 Room Air 02/14/17 23:51 Room Air 02/14/17 23:46 36.6 84 16 122/79 (93) 92 Room Air Lab Results: Results Past 24 Hours Test 02/14/17 20:47 02/15/17 07:56 02/15/17 07:59 02/15/17 11:59 Range/Units Bedside Glucose 277 297 243 70-99 mg/dl White Blood Count 16.25 4.8-10.8 K/uL Red Blood Count 4.03 4.7-6.1 M/uL Hemoglobin 11.1 14.0-18.0 g/dL Hematocrit 34.1 42-52 % Mean Corpuscular Volume 84.6 80-100 fL Mean Corpuscular Hemoglobin 27.5 25-34 pg Mean Corpuscular Hemoglobin Concent 32.6 32-36 g/dl Platelet Count 331 130-400 K/uL Mean Platelet Volume 9.3 7.4-10.4 fL Neutrophils (%) (Auto) 90.4 % Lymphocytes (%) (Auto) 4.8 % Monocytes (%) (Auto) 4.2 % Eosinophils (%) (Auto) 0.0 % Basophils (%) (Auto) 0.1 % Neutrophils # (Auto) 14.69 1.4-6.5 K/uL Lymphocytes # (Auto) 0.78 1.2-3.4 K/uL Monocytes # (Auto) 0.69 0.11-0.59 K/uL Eosinophils # (Auto) 0.00 0-0.5 K/uL Basophils # (Auto) 0.01 0-0.2 K/uL RDW Standard Deviation 45.4 36.4-46.3 fL RDW Coefficient of Variation 14.6 11.5-14.5 % Immature Granulocyte % (Auto) 0.5 % Immature Granulocyte # (Auto) 0.08 0.00-0.02 K/uL Sodium Level 136 136-145 mmol/L Potassium Level 4.2 3.5-5.1 mmol/L Chloride Level 102 98-107 mmol/L Carbon Dioxide Level 25 21-32 mmol/L Anion Gap 9.0 3-11 mmol/L Blood Urea Nitrogen 17 7-18 mg/dl Creatinine 1.60 0.60-1.40 mg/dl Est Creatinine Clear Calc Drug Dose 62.5 ml/min Estimated GFR () 53.9 Estimated GFR (Non- 46.5 BUN/Creatinine Ratio 10.3 10-20 Random Glucose 286 70-99 mg/dl Estimated Average Glucose 189 mg/dl Hemoglobin A1c 8.2 4.5-5.6 % Calcium Level 8.7 8.5-10.1 mg/dl Test 02/15/17 17:15 Range/Units Bedside Glucose 127 70-99 mg/dl
[2017-02-15] MEDS ORDERED: INSULIN GLARGINE SOLOSTAR 100 UNITS/ML 3 ML PEN SC SCH (21:00)
[2017-02-15] MEDS ORDERED: INSULIN ASPART 100 UNITS/ML 3 ML PEN SC SCH (21:00)
[2017-02-15] MEDS: DOCUSATE SODIUM/SENNA 50/8.6MG TAB PO SCH (21:17)
[2017-02-15 23:28] VITALS: BP 125/77; PULSE 85; TEMP 36.5; O2SAT 98
[2017-02-16] MEDS ORDERED: POLYETHYLENE (MIRALAX) 17 GM PACK PO SCH (06:00)
[2017-02-16 06:55] LABS: CREATININE 1.4 mg/dl (0.60-1.40)
[2017-02-16 07:07] VITALS: BP 128/81; PULSE 84; TEMP 36.6; O2SAT 98
[2017-02-16] MEDS ORDERED: INSULIN ASPART 100 UNITS/ML 3 ML PEN SC SCH (08:00)
--- NOTE | 2017-02-16 08:19 | Discharge Summary ---
Orthopedic Discharge Summary Admission Date/Reason Feb 14, 2017 at 13:19 Lumbar Spinal Stenosis. Discharge Date/Disposition Feb 16, 2017 Home with services Diagnosis Principal Diagnosis: Lumbar spinal stenosis Admission Physical Exam As per Admitting History & Physical. Hospital Course Patient underwent lumbar decompression fusion tolerated this well as taken to the orthopedic 4 postop we. Postop day #1 Ancef in amatory progressed to postoperative day #2. Leg symptoms are improved. Subsequently discharged home. Discharge orders and instructions found on the chart for further review. Discharge Instructions Please refer to the electronic Patient Visit Report (Discharge Instructions) for additional information.
[2017-02-16] MEDS ORDERED: METFORMIN HCL 500 MG TAB PO SCH (08:30)
[2017-02-16] MEDS: BuPROPion SR 150 MG TABCR PO SCH (09:00)
[2017-02-16] MEDS: PANTOprazole SOD 40 MG TAB PO SCH (09:37)
[2017-02-16] MEDS: CITALOPRAM 20 MG TAB PO SCH (09:37)
[2017-02-16] MEDS: IRBESARTAN 150 MG TAB PO SCH (09:37)
[2017-02-16] MEDS: AMLODIPINE BESYLATE 5 MG TAB PO SCH (09:37)
[2017-02-16] MEDS: ASPIRIN 81 MG ECTAB PO SCH (09:45)
[2017-02-16 10:01] VITALS: BP 128/81; PULSE 84; TEMP 36.6; O2SAT 98
== END 2017-02-16 12:01 | disposition home health service (06) | DRG 460 ==
LOC: C.ACU 08:29 → C.3E 13:19 → ENRESERV 13:57
PROVIDERS: ADMIT Orthopaedic Surgery Orthopaedic Surgery of the Spine; ATTEND Orthopaedic Surgery Orthopaedic Surgery of the Spine
PROC: 3E0U0GB Introduction of Recombinant Bone Morphogenetic Protein into Joints, Open Approach (ICD-10-PCS; principal; 2017-02-14 10:00)
PROC: 0SG3071 Fusion of Lumbosacral Joint with Autologous Tissue Substitute, Posterior Approach, Posterior Column, Open Approach (ICD-10-PCS; principal; 2017-02-14 10:00)
PROC: 0ST40ZZ Resection of Lumbosacral Disc, Open Approach (ICD-10-PCS; principal; 2017-02-14 10:00)
PROC: 0SG0071 Fusion of Lumbar Vertebral Joint with Autologous Tissue Substitute, Posterior Approach, Posterior Column, Open Approach (ICD-10-PCS; principal; 2017-02-14 10:00)
PROC: 0SG30AJ Fusion of Lumbosacral Joint with Interbody Fusion Device, Posterior Approach, Anterior Column, Open Approach (ICD-10-PCS; principal; 2017-02-14 10:00)
DX: M48.06 Spinal stenosis, lumbar region (principal); I12.9 Hypertensive chronic kidney disease with stage 1 through stage 4 chronic kidney disease, or unspecified chronic kidney disease; T38.0X5A Adverse effect of glucocorticoids and synthetic analogues, initial encounter; J45.909 Unspecified asthma, uncomplicated; N18.3 Chronic kidney disease, stage 3 (moderate); Z99.89 Dependence on other enabling machines and devices; F32.9 Major depressive disorder, single episode, unspecified; R11.2 Nausea with vomiting, unspecified; G47.00 Insomnia, unspecified; E66.9 Obesity, unspecified; R06.83 Snoring; F41.9 Anxiety disorder, unspecified; K21.9 Gastro-esophageal reflux disease without esophagitis; M54.2 Cervicalgia; E11.42 Type 2 diabetes mellitus with diabetic polyneuropathy; E11.22 Type 2 diabetes mellitus with diabetic chronic kidney disease; R63.8 Other symptoms and signs concerning food and fluid intake; Z91.19 Patient's noncompliance with other medical treatment and regimen; Z79.82 Long term (current) use of aspirin; Z79.899 Other long term (current) drug therapy; Z79.4 Long term (current) use of insulin; Z79.84 Long term (current) use of oral hypoglycemic drugs; Z68.33 Body mass index [BMI] 33.0-33.9, adult